=== PATIENT | male | born 1935 | race Caucasian/White ===

== ENCOUNTER 2019-04-21 08:18 | Inpatient (IN) | payer MEDICARE ==
[~2019-04-21] VITALS: Ht 172.7 cm; Wt 65.8 kg
[~2019-04-21 08:18] MED LIST: ALBU8.5H5 INH; AMLO-150 PO; ASPI-496 PO; ATEN25TA PO; ATOR80TA PO; BECL8.7A7 INH; CHOL100014 PO; CLOP75TA52 PO; DIAZ5TAB4 PO; ENAL5TAB70 PO; FERR240T2 PO; FLUT12AE2 HOMEINH; HYDR-3237 PO; ISOS30TA PO; LISI5TAB PO; LISI5TAB7 PO; MULT-484 PO; OMEP-110 PO; POLY1530 PO; SIMV10TA3 PO; SOTA80TA PO; SOTA80TA18 PO; UBID200C PO
--- NOTE | 2019-04-21 08:38 | NUR ---
PT BIB [facility], C/O SOB AND COUGH X3 DAYS. NO HX O2 USE, REQUIRING SUPP O2 3LNC AT THIS TIME, PER EMS REPORT PT ON 86%RA ON ARRIVAL. 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 PT DENIES CP, TRAUMA. PT TO CARD MONITOR, BP, CONT PULSE OX
[2019-04-21] MEDS ORDERED: methylPREDNISolone SOD SUCC 125 MG/2 ML ONE (08:44)
[2019-04-21] MEDS ORDERED: ALBUTEROL/IPRATROPIUM 2.5MG/0.5MG, 3 ML ONE (08:55)
[2019-04-21] MEDS ORDERED: CEFTRIAXONE PMX 1GM/50ML 50 ML IV ONE (09:00)
[2019-04-21] MEDS ORDERED: AZITHROMYCIN 500 MG in SODIUM CHLORIDE 0.9% 250 ML IV ONE (09:00)
[2019-04-21] MEDS ORDERED: methylPREDNISolone SOD SUCC 125 MG/2 ML IV ONE (09:00)
[2019-04-21] MEDS ORDERED: CEFTRIAXONE PMX 1GM/50ML 50 ML ONE (09:10)
[2019-04-21 09:12] LABS: ALANINE AMINOTRANSFERASE 21 U/L (12-78); ALBUMIN 3.1 g/dL (3.4-5.0); ANION GAP 10 mmol/L (5-15); CALCIUM 8.2 mg/dL (8.5-10.1); CHLORIDE 96 mmol/L (98-107); CREATININE 1.26 mg/dL (0.7-1.3)
[2019-04-21 09:16] LABS: ALKALINE PHOSPHATASE 52 U/L (45-117); BILIRUBIN,TOTAL 1.4 mg/dL (0.2-1.0); MEAN CORPUSCULAR HEMOGLOBIN 19.7 pg (27.5-34.5); MEAN CORPUSCULAR HGB CONC 30.7 g/dL (33.2-36.2); MEAN CORPUSCULAR VOLUME 64.1 fL (81-97); PLATELET COUNT 278 x10^3/uL (130-400); RED BLOOD COUNT 5.63 x10^6/uL (4.38-5.82); RED CELL DISTRIBUTION WIDTH 20.1 % (9.4-14.8); TOTAL PROTEIN 6.3 g/dL (6.4-8.2); TROPONIN I 0.058 ng/mL (0.000-0.045)
[2019-04-21] MEDS ORDERED: ALBUTEROL/IPRATROPIUM 2.5MG/0.5MG, 3 ML NEB ONE (09:30)
--- NOTE | 2019-04-21 09:30 | NUR ---
PIV INITIATED, PT MEDICATED PER MAR.
[2019-04-21] MEDS ORDERED: SODIUM CHLORIDE 0.9% 1,000ML IVBOLUS ONE (10:00)
[2019-04-21 10:21] LABS: MD YES
[2019-04-21 10:32] LABS: BAND#(MANUAL) 4.89 x10^3/uL; BANDS%(MANUAL) 52 % (0-7); LYMPH#(MANUAL) 0.47 x10^3/uL (1-3.4); LYMPHS% (MANUAL) 5 % (22-44); METAMYELOCYTES# (MANUAL) 0.66 x10^3/uL (0-0); METAMYELOCYTES% (MANUAL) 7 % (0-1); MONOS#(MANUAL) 0.09 x10^3/uL (0.3-2.7); MONOS% (MANUAL) 1 % (2-9); SEG#(MANUAL) 3.29 x10^3/uL (1.8-6.8); SEGS% (MANUAL) 35 % (42-75)
[2019-04-21 10:33] LABS: ANISOCYTOSIS 1+; MICROCYTOSIS 1+
[2019-04-21 10:34] LABS: <PLATELET ESTIMATE> ADEQUATE; <PLT MORPHOLOGY> NORMAL PLT MORPH; HYPOCHROMIA 1+; OVALOCYTES 1+; POLYCHROMASIA 1+; TARGET CELLS 1+
--- NOTE | 2019-04-21 11:07 | NUR ---
TASK RN: PT RESTING ON GURNEY. NADN. CERON. PT CHART REVIEWED. CHART PLACED FOR RECHECK.
[2019-04-21] MEDS ORDERED: ONDANSETRON 2MG/ML, 2ML IVPush PRN (11:30)
[2019-04-21] MEDS ORDERED: morphine SULFATE 10 MG/ML, 1ML IVPush PRN (11:30)
[2019-04-21] MEDS ORDERED: PROMETHAZINE 25 MG/ML, 1ML IM PRN (11:30)
[2019-04-21] MEDS ORDERED: CEFTRIAXONE PMX 1GM/50ML 50 ML IV SCH (11:30)
[2019-04-21] MEDS ORDERED: NITROGLYCERIN 0.4 MG BOTTLE (25 TABS) SL PRN (11:30)
--- NOTE | 2019-04-21 13:36 | NUR ---
TASK RN, TROP 0.[address] MCDOWELL. ASA 162 ORDERED.
[2019-04-21] MEDS ORDERED: ASPIRIN 81 MG TABLET CHEW ONE ×2 (13:39)
[2019-04-21] MEDS ORDERED: ASPIRIN 81 MG TABLET CHEW PO ONE (14:00)
[2019-04-21] MEDS ORDERED: SODIUM CHLORIDE 0.9% 1,000 ML IV SCH (14:30)
--- NOTE | 2019-04-21 15:07 | NUR ---
REPORT CALLED TO RECIEVING LU ROSALES
[2019-04-21] MEDS ORDERED: OMNIPAQUE 350 MG/ML, 100ML BOTTLE ONE (16:44)
[2019-04-21 17:00] VITALS: BP 136/52
[2019-04-21] MEDS: DOXYCYCLINE 100 MG in DEXTROSE 5% 250 ML IV SCH (17:09)
[2019-04-21] MEDS: HEPARIN 5,000 UNITS/ML, 1ML SQ SCH ×2 (17:09→17:41)
[2019-04-21] MEDS: SODIUM CHLORIDE 0.9% 1,000 ML IV SCH ×2 (17:10→17:41)
[2019-04-21 20:53] VITALS: BP 175/86
[2019-04-21 20:55] LABS: TROPONIN I 0.084 ng/mL (0.000-0.045)
[2019-04-21] MEDS: ATORVASTATIN 40 MG TABLET PO SCH (21:29)
[2019-04-21] MEDS: LISINOPRIL 5 MG TABLET PO SCH (21:29)
[2019-04-21] MEDS: SOTALOL 80MG TABLET PO SCH (21:30)
[2019-04-22 00:10] VITALS: BP 171/91
[2019-04-22] MEDS: SODIUM CHLORIDE 0.9% 1,000 ML IV SCH ×2 (03:20→15:26)
[2019-04-22] MEDS: HEPARIN 5,000 UNITS/ML, 1ML SQ SCH ×3 (03:20→20:39)
[2019-04-22] MEDS: DOXYCYCLINE 100 MG in DEXTROSE 5% 250 ML IV SCH ×2 (06:18→17:12)
[2019-04-22] MEDS: ASPIRIN 325 MG TABLET EC PO SCH (06:19)
[2019-04-22 07:42] LABS: ANION GAP 5 mmol/L (5-15); CHLORIDE 102 mmol/L (98-107); CHOLESTEROL, TOTAL 83 mg/dL (140-239); CREATININE 0.92 mg/dL (0.7-1.3)
[2019-04-22 07:44] LABS: CHOL/HDL RATIO 1.3; HDL CHOL % 75 % (26-37); HDL CHOLESTEROL (DIRECT) 62 mg/dL (40-60); LDL CHOLESTEROL,CALCULATED 12 mg/dL (54-169); LDL/HDL RATIO 0.2 (0.5-3.0); TRIGLYCERIDES 43 mg/dL (50-200); VLDL CHOLESTEROL 9 mg/dL (0-25)
[2019-04-22 07:59] LABS: MEAN CORPUSCULAR HEMOGLOBIN 19.5 pg (27.5-34.5); MEAN CORPUSCULAR HGB CONC 30.7 g/dL (33.2-36.2); MEAN CORPUSCULAR VOLUME 63.7 fL (81-97); PLATELET COUNT 276 x10^3/uL (130-400); RED BLOOD COUNT 5.11 x10^6/uL (4.38-5.82); RED CELL DISTRIBUTION WIDTH 20.3 % (9.4-14.8)
[2019-04-22 08:00] VITALS: BP 185/91
[2019-04-22] MEDS: SOTALOL 80MG TABLET PO SCH ×2 (08:23→20:40)
[2019-04-22] MEDS: MULTIVITAMINS/MINERALS TABLET PO SCH (08:23)
[2019-04-22] MEDS: CLOPIDOGREL 75 MG TABLET PO SCH (08:23)
[2019-04-22] MEDS: OMEPRAZOLE 20 MG CAPSULE.DR PO SCH (08:24)
[2019-04-22] MEDS: LISINOPRIL 5 MG TABLET PO SCH ×2 (08:24→20:39)
[2019-04-22 08:25] LABS: MD YES
[2019-04-22 08:27] LABS: MONOS#(MANUAL) 0.48 x10^3/uL (0.3-2.7); MONOS% (MANUAL) 4 % (2-9)
[2019-04-22 08:31] LABS: <PLATELET ESTIMATE> ADEQUATE; <PLT MORPHOLOGY> NORMAL PLT MORPH; ANISOCYTOSIS 1+; HYPOCHROMIA 1+; MICROCYTOSIS 1+; OVALOCYTES 1+; TARGET CELLS 1+
[2019-04-22 08:37] LABS: BAND#(MANUAL) 4.17 x10^3/uL; BANDS%(MANUAL) 35 % (0-7); METAMYELOCYTES# (MANUAL) 0.12 x10^3/uL (0-0); METAMYELOCYTES% (MANUAL) 1 % (0-1); SEG#(MANUAL) 7.14 x10^3/uL (1.8-6.8); SEGS% (MANUAL) 60 % (42-75)
[2019-04-22] MEDS: CEFTRIAXONE PMX 1GM/50ML 50 ML IV SCH (09:02)
[2019-04-22] MEDS ORDERED: ALBUTEROL SULFATE 2.5 MG/3 ML ONE (12:15)
[2019-04-22] MEDS: BUDESONIDE 0.5 MG/2 ML INHA INH SCH (12:20)
[2019-04-22] MEDS: ALBUTEROL SULFATE 2.5 MG/3 ML NPPB SCH ×3 (12:20→18:47)
[2019-04-22 14:22] VITALS: BP 168/76
[2019-04-22 19:21] VITALS: BP 168/65
[2019-04-22] MEDS: ATORVASTATIN 40 MG TABLET PO SCH (20:39)
[2019-04-23] MEDS: SODIUM CHLORIDE 0.9% 1,000 ML IV SCH ×3 (01:05→21:20)
[2019-04-23 01:38] VITALS: BP 160/79
[2019-04-23] MEDS: HEPARIN 5,000 UNITS/ML, 1ML SQ SCH ×3 (04:41→21:19)
[2019-04-23] MEDS: ASPIRIN 325 MG TABLET EC PO SCH (04:41)
[2019-04-23] MEDS: DOXYCYCLINE 100 MG in DEXTROSE 5% 250 ML IV SCH ×2 (04:42→17:40)
[2019-04-23] MEDS: ALBUTEROL SULFATE 2.5 MG/3 ML NPPB SCH ×4 (07:00→19:11)
[2019-04-23] MEDS: BUDESONIDE 0.5 MG/2 ML INHA INH SCH ×2 (08:03→19:11)
[2019-04-23 09:03] VITALS: BP 134/68
[2019-04-23] MEDS: SOTALOL 80MG TABLET PO SCH ×2 (09:22→21:20)
[2019-04-23] MEDS: OMEPRAZOLE 20 MG CAPSULE.DR PO SCH (09:22)
[2019-04-23] MEDS: CLOPIDOGREL 75 MG TABLET PO SCH (09:22)
[2019-04-23] MEDS: MULTIVITAMINS/MINERALS TABLET PO SCH (09:22)
[2019-04-23] MEDS: CEFTRIAXONE PMX 1GM/50ML 50 ML IV SCH (09:22)
[2019-04-23] MEDS: LISINOPRIL 5 MG TABLET PO SCH ×2 (09:22→21:20)
[2019-04-23 14:14] VITALS: BP 164/62
[2019-04-23] MEDS ORDERED: POLYETHYLENE GLYCOL 17 GM PACKET PO PRN (18:00)
[2019-04-23 20:54] VITALS: BP_SYST 186; BP_SYST 194; BP_DIAS 81; BP_DIAS 99
[2019-04-23] MEDS: ATORVASTATIN 40 MG TABLET PO SCH (21:20)
[2019-04-24] VITALS (10 sets, daily range): BP systolic 136–200; BP diastolic 66–98
[2019-04-24] MEDS: hydrALAzine 20 MG/ML, 1ML IVPush PRN ×4 (01:00→22:46)
[2019-04-24] MEDS: LABETALOL 5MG/ML, 20ML IVPush PRN ×2 (01:58→21:12)
[2019-04-24] MEDS: DOXYCYCLINE 100 MG in DEXTROSE 5% 250 ML IV SCH (05:11)
[2019-04-24] MEDS: ASPIRIN 325 MG TABLET EC PO SCH (05:11)
[2019-04-24] MEDS: HEPARIN 5,000 UNITS/ML, 1ML SQ SCH ×3 (05:11→20:16)
[2019-04-24] MEDS: ALBUTEROL SULFATE 2.5 MG/3 ML NPPB SCH ×4 (06:55→18:42)
[2019-04-24] MEDS: BUDESONIDE 0.5 MG/2 ML INHA INH SCH ×2 (06:55→18:42)
[2019-04-24] MEDS ORDERED: LISINOPRIL 10 MG TABLET ONE (08:08)
[2019-04-24] MEDS: SODIUM CHLORIDE 0.9% 1,000 ML IV SCH (08:16)
[2019-04-24] MEDS: CLOPIDOGREL 75 MG TABLET PO SCH (08:16)
[2019-04-24] MEDS: OMEPRAZOLE 20 MG CAPSULE.DR PO SCH (08:16)
[2019-04-24] MEDS: SOTALOL 80MG TABLET PO SCH ×2 (08:16→20:17)
[2019-04-24] MEDS: MULTIVITAMINS/MINERALS TABLET PO SCH (08:16)
[2019-04-24] MEDS: CEFTRIAXONE PMX 1GM/50ML 50 ML IV SCH (08:16)
[2019-04-24] MEDS: LISINOPRIL 10 MG TABLET PO SCH ×2 (08:17→20:16)
[2019-04-24] MEDS: DOXYCYCLINE 100MG CAP PO SCH ×2 (10:36→20:16)
[2019-04-24] MEDS: CEFDINIR 300 MG CAPSULE PO SCH ×2 (10:36→20:16)
[2019-04-24] MEDS: ACETAMINOPHEN 325 MG TABLET PO PRN ×2 (10:38→15:36)
[2019-04-24] MEDS: ATORVASTATIN 40 MG TABLET PO SCH (20:16)
[2019-04-25 00:02] VITALS: BP 170/87
[2019-04-25 02:53] VITALS: BP 161/71
[2019-04-25] MEDS: HEPARIN 5,000 UNITS/ML, 1ML SQ SCH (06:41)
[2019-04-25] MEDS: ASPIRIN 325 MG TABLET EC PO SCH (06:41)
[2019-04-25 08:24] VITALS: BP 187/87
[2019-04-25] MEDS: ALBUTEROL SULFATE 2.5 MG/3 ML NPPB SCH (08:25)
[2019-04-25] MEDS: BUDESONIDE 0.5 MG/2 ML INHA INH SCH (08:25)
[2019-04-25] MEDS: DOXYCYCLINE 100MG CAP PO SCH (08:32)
[2019-04-25] MEDS: OMEPRAZOLE 20 MG CAPSULE.DR PO SCH (08:32)
[2019-04-25] MEDS: SOTALOL 80MG TABLET PO SCH (08:33)
[2019-04-25] MEDS: CLOPIDOGREL 75 MG TABLET PO SCH (08:33)
[2019-04-25] MEDS: LISINOPRIL 10 MG TABLET PO SCH (08:33)
[2019-04-25] MEDS: MULTIVITAMINS/MINERALS TABLET PO SCH (08:33)
[2019-04-25] MEDS: hydrALAzine 20 MG/ML, 1ML IVPush PRN (08:34)
[2019-04-25] MEDS ORDERED: TAMS-11 PO (08:45)
[2019-04-25] MEDS ORDERED: DOXY100C2 PO (08:45)
[2019-04-25] MEDS ORDERED: CEFD300C37 PO (08:45)
[2019-04-25] MEDS ORDERED: LISI-167 PO (08:45)
[2019-04-25] MEDS ORDERED: FUROSEMIDE 20 MG/2 ML IV ONE (09:00)
[2019-04-25] MEDS ORDERED: TAMSULOSIN 0.4 MG CAP.ER.24H PO SCH (09:00)
[2019-04-25 09:17] VITALS: BP 124/55
[2019-04-25] MEDS ORDERED: FUROSEMIDE 20 MG TABLET ONE (09:23)
[2019-04-25] MEDS ORDERED: FUROSEMIDE 20 MG TABLET PO SCH (10:00)
== END 2019-04-25 10:00 | disposition home or self-care (01) | DRG 871 ==
LOC: ED 09:50 → EDIP 09:51 → 4EST 15:44 → DCLOUNGE 04-25 09:49
PROVIDERS: ADMIT Emergency Medicine; ATTEND Family Medicine
DX: A41.9 Sepsis, unspecified organism (principal); J15.9 Unspecified bacterial pneumonia; J96.01 Acute respiratory failure with hypoxia; E87.1 Hypo-osmolality and hyponatremia; J45.901 Unspecified asthma with (acute) exacerbation; I24.8 Other forms of acute ischemic heart disease; E87.2 Acidosis; I12.9 Hypertensive chronic kidney disease with stage 1 through stage 4 chronic kidney disease, or unspecified chronic kidney disease; D50.9 Iron deficiency anemia, unspecified; E86.1 Hypovolemia; I35.8 Other nonrheumatic aortic valve disorders; J43.9 Emphysema, unspecified; R94.5 Abnormal results of liver function studies; N18.3 Chronic kidney disease, stage 3 (moderate); I27.20 Pulmonary hypertension, unspecified; I48.91 Unspecified atrial fibrillation; E78.5 Hyperlipidemia, unspecified; I25.10 Atherosclerotic heart disease of native coronary artery without angina pectoris; Z79.899 Other long term (current) drug therapy; Z87.891 Personal history of nicotine dependence; Z79.51 Long term (current) use of inhaled steroids; Z90.49 Acquired absence of other specified parts of digestive tract; I25.2 Old myocardial infarction
CPT/HCPCS: 36415; 71045; 71275; 80048; 80053; 80061; 82728; 83540; 83550; 83605; 83735; 84145; 84443; 84484; 85025; 85379; 87040; 87070; 87205; 93005; 93306; 94640; 96365; 96375; G0378; J0456; J0696; J1644; J7060; J7613; J7620; J7626; Q9967; J0360; J2930; J7030; J7050